=== PATIENT | female | born 1930 | race Caucasian/White ===

== ENCOUNTER 2021-11-01 18:21 | Inpatient (IN) | payer MEDICARE ==
[~2021-11-01] VITALS: Ht 147.3 cm; Wt 59.2 kg
[~2021-11-01 18:21] MED LIST: AMOXICILLIN500 MG PO; ASMANEX HFA13 G1 INH; ASPIRIN CHEWABL81 MG PO; BROVANA15 MCG/2 M INH; BUMEX1 MG PO; CRANBERRY250 MG PO; DEMADEX20 MG PO; DIFICID200 MG PO; FIBER LAXATIVE625 MG PO; K-DUR20 MEQ PO; LACTINEX1 EACH PO; LEVAQUIN500 MG PO; LOPRESSOR25 MG PO; LOVAZA1 GM PO; MACROBID100 MG PO; NYSTATIN SUSP1 ML/ML SSP; PERCOCET 5/3251 TAB PO; PREDNISONE20 MG PO; PROTONIX 40MG T40 MG PO; REGLAN5 MG PO; SALINE NASAL SP88 ML INH; SPIRIVA18 MCG INH; SYNTHROID100 MCG PO; TESSALON PERLE100 MG PO; TYLENOL500 MG PO; VENTOLIN HFA IN18 GM INH; VITAMIN B COMP1 EACH PO; VITAMIN D1000 UNI1 PO; XOPENEX (11.25 MG/3 INH; ZOFRAN4 MG PO
[2021-11-01 20:31] LABS: HCT 30.9 % (37.0-47.0); HGB 9.4 g/dl (12.5-16.0); LYMPHOCYTE 35.1 % (15-48); MCH 23.9 pg (25.0-31.0); MCHC 30.4 g/dL (32.0-36.0); MCV 78.6 fL (78.0-100.0); MONOCYTE 15.9 % (0-12); MPV 11.1 fL (6.0-9.5); NEUTROPHIL 44.8 % (41-80); NRBC 0; PLT 248 K/uL (150-400); RBC 3.93 M/uL (4.20-5.40); RDW 15.2 % (11.5-14.0); WBC 6.3 K/uL (4.0-10.5)
[2021-11-01 20:53] LABS: ALBUMIN 2.8 g/dL (3.4-5.0); ALKALINE PHOSHATASE 155 U/L (46-116); ALT 41 U/L (14-59); AST 46 U/L (15-37); BILIRUBIN - TOTAL 0.3 mg/dL (0.2-1.0); BUN 14 mg/dL (7-18); BUN/CREAT RATIO (CALC) 14.9 RATIO; CHLORIDE 99 mmol/L (98-107); CO2 (BICARBONATE) 34 mmol/L (21-32); CREATININE 0.94 mg/dL (0.51-0.95); GLOBULIN (CALCULATION) 4.3 g/dL; GLUCOSE 95 mg/dL (74-106); POTASSIUM 4.4 mmol/L (3.5-5.1); TOTAL PROTEIN 7.1 g/dL (6.4-8.2)
[2021-11-01 20:54] LABS: ACETAMINOPHEN (TYLENOL) < 2.0 ug/mL (10.0-30.0)
[2021-11-01 23:44] LABS: BILIRUBIN NEGATIVE (NEGATIVE); BLOOD NEGATIVE Ery/uL (NEGATIVE); CLARITY CLEAR (CLEAR); COLOR YELLOW (YELLOW); GLUCOSE (U) NORMAL (NORMAL); LEUKOCYTES 2+ Leu/uL (NEGATIVE); NITRITE POSITIVE (NEGATIVE); PROTEIN NEGATIVE (NEGATIVE); UROBILINOGEN 0.2 mg/dL (0.2-1.0)
[2021-11-01 23:48] LABS: AMPHETAMINES NEGATIVE (NEGATIVE); BARBITURATES NEGATIVE (NEGATIVE); ECSTASY (MDMA) NEGATIVE (NEGATIVE); MARIJUANA (THC) NEGATIVE (NEGATIVE); METHADONE NEGATIVE (NEGATIVE); OPIATES NEGATIVE (NEGATIVE); OXYCODONE NEGATIVE (NEGATIVE)
[2021-11-01 23:51] LABS: BACTERIA 4+
[2021-11-02] MEDS ORDERED: IMODIUM A-D2 M1 PO (01:15)
[2021-11-02] MEDS ORDERED: KLOR-CON M2020 MEQ PO (01:18)
[2021-11-02] MEDS ORDERED: LOVAZA1 GM PO (01:19)
[2021-11-02] MEDS ORDERED: SYNTHROID125 MCG PO (01:20)
[2021-11-02] MEDS ORDERED: BENTYL10 MG PO (01:23)
[2021-11-02] MEDS ORDERED: LASIX40 MG PO (01:24)
[2021-11-02] MEDS ORDERED: ONDANSETRON ODT8 MG PO (01:26)
[2021-11-03 07:46] LABS: BASOPHIL 0.8 % (0-2); EOSINOPHIL 3.9 % (0-7); HCT 30.5 % (37.0-47.0); HGB 9.4 g/dl (12.5-16.0); LYMPHOCYTE 40.5 % (15-48); MCH 24.5 pg (25.0-31.0); MCHC 30.8 g/dL (32.0-36.0); MCV 79.4 fL (78.0-100.0); MONOCYTE 18.3 % (0-12); MPV 11.6 fL (6.0-9.5); NEUTROPHIL 36.2 % (41-80); NRBC 0; PLT 234 K/uL (150-400); RBC 3.84 M/uL (4.20-5.40); RDW 15.5 % (11.5-14.0); RETICULOCYTE COUNT 1.4 % (1.0-2.0); WBC 7.3 K/uL (4.0-10.5)
[2021-11-03 08:20] LABS: IRON % SATURATION 7.3 %SAT (20-50)
[2021-11-03 08:48] LABS: BUN/CREAT RATIO (CALC) 15.6 RATIO; CREATININE 0.9 mg/dL (0.51-0.95); FOLIC ACID (SERUM) 6.1 ng/mL (8.6-58.9); MAGNESIUM 2.3 mg/dL (1.8-2.4)
[2021-11-04 06:18] LABS: BASOPHIL 0.3 % (0-2); EOSINOPHIL 0.2 % (0-7); HCT 30.2 % (37.0-47.0); HGB 9.2 g/dl (12.5-16.0); LYMPHOCYTE 33.8 % (15-48); MCH 24.2 pg (25.0-31.0); MCHC 30.5 g/dL (32.0-36.0); MCV 79.5 fL (78.0-100.0); MONOCYTE 3.6 % (0-12); MPV 11.1 fL (6.0-9.5); NEUTROPHIL 61.6 % (41-80); NRBC 0; PLT 252 K/uL (150-400); RDW 15.3 % (11.5-14.0); WBC 6.2 K/uL (4.0-10.5)
[2021-11-04 07:48] LABS: BUN/CREAT RATIO (CALC) 14.3 RATIO; CREATININE 0.91 mg/dL (0.51-0.95); MAGNESIUM 2.3 mg/dL (1.8-2.4); PHOSPHORUS 4.5 mg/dL (2.6-4.7); POTASSIUM 4.7 mmol/L (3.5-5.1)
--- NOTE | 2021-11-04 14:12 | NUR ---
11/04/21 Ms. Drake lives with her son and his GF. She has a rollator, 02 at 3L and portable tank. [facility] is the PCP. Therapy made recommendations for SNF. Mr. Drake, son, wishes for MS. Drake to return home with HH. [facility], his first choice, does not have therapy available in the area. Awaiting responses from [facility] and [facility].
[2021-11-05 03:31] LABS: BASOPHIL 0.6 % (0-2); EOSINOPHIL 1.8 % (0-7); HCT 28.9 % (37.0-47.0); HGB 8.8 g/dl (12.5-16.0); LYMPHOCYTE 32.4 % (15-48); MCHC 30.4 g/dL (32.0-36.0); MCV 78.7 fL (78.0-100.0); MONOCYTE 16.5 % (0-12); MPV 11.2 fL (6.0-9.5); NEUTROPHIL 48.3 % (41-80); NRBC 0; PLT 269 K/uL (150-400); RBC 3.67 M/uL (4.20-5.40); RDW 15.4 % (11.5-14.0)
[2021-11-05 03:32] LABS: WBC 11.3 K/uL (4.0-10.5)
[2021-11-05 03:40] LABS: BUN/CREAT RATIO (CALC) 21.1 RATIO; CREATININE 0.95 mg/dL (0.51-0.95); MAGNESIUM 2.4 mg/dL (1.8-2.4)
--- NOTE | 2021-11-05 13:27 | NUR ---
11/05/21 Mr. Gaitan has chosen the following SNF's: [facility], [facility], [facility], and [facility]. [facility] has denied due to COVID in the building. The other 3 facilities are reviewing.
--- NOTE | 2021-11-06 15:52 | NUR ---
[facility] HAS ACCEPTED PT. INSURANCE AUTH STILL PENDING. SPOKE WITH BEBETO ([facility]) AND SHE REQUESTED PT'S HOME BIPAP SETTINGS PER SIGNATURE POLICY. CARE COORDINATION REACHED OUT TO DME COMPANY THAT SUPPLIED BIPAP ([employer]) AND WAS TOLD PT'S SETTINGS ARE: EPAP 6, IPAP 24, AUTO BIPAP 6-24. NOTIFIED BEBETO AND SHE SAID SHE WOULD CALL CARE COORDINATION DEPARTMENT SOON AUTH WAS RECEIVED.
--- NOTE | 2021-11-07 15:18 | NUR ---
RECEIVED PHONE CALL FROM BEBETO WITH [facility]. PT. HAS BEEN ACCEPTED FOR SNF. PT. CAN GO TO [facility] TOMORROW AFTER BIPAP IS DELIVERED. HOWEVER, FAMILY HAS DECIDED TO HAVE PT. TRANSFERRED TO [facility] FOR TAVR. CURRENTLY WAITING FOR BED AT [facility]. TOLD BEBETO THIS INFORMATION AND SHE SAID SHE WOULD HOLD BED FOR PT. UNTIL TOMMORROW IN CASE FAMILY CHANGES THEIR MINDS BEFORE BED AT [facility] IS AVAILABLE.
[2021-11-07] MEDS ORDERED: FOLIC ACID1 MG PO (16:47)
[2021-11-07] MEDS ORDERED: CHILDREN'S ASPI81 MG PO (16:47)
[2021-11-07] MEDS ORDERED: PLAVIX75 MG PO (16:47)
== END 2021-11-07 18:45 | disposition hospice, home (50) | DRG 64 ==
LOC: FER 18:21 → FTCU 23:37
PROVIDERS: Internal Medicine; ADMIT Family Medicine
PROC: 5A09357 Assistance with Respiratory Ventilation, Less than 24 Consecutive Hours, Continuous Positive Airway Pressure (ICD-10-PCS; 2021-11-03)
PROC: 5A09357 Assistance with Respiratory Ventilation, Less than 24 Consecutive Hours, Continuous Positive Airway Pressure (ICD-10-PCS; 2021-11-04)
PROC: B24BZZZ Ultrasonography of Heart with Aorta (ICD-10-PCS; principal; 2021-11-05)
PROC: 5A09357 Assistance with Respiratory Ventilation, Less than 24 Consecutive Hours, Continuous Positive Airway Pressure (ICD-10-PCS; 2021-11-05)
DX: I63.9 Cerebral infarction, unspecified (principal); J96.21 Acute and chronic respiratory failure with hypoxia; J96.22 Acute and chronic respiratory failure with hypercapnia; I50.32 Chronic diastolic (congestive) heart failure; N30.00 Acute cystitis without hematuria; I13.0 Hypertensive heart and chronic kidney disease with heart failure and stage 1 through stage 4 chronic kidney disease, or unspecified chronic kidney disease; Z66 Do not resuscitate; I35.0 Nonrheumatic aortic (valve) stenosis; B96.20 Unspecified Escherichia coli [E. coli] as the cause of diseases classified elsewhere; N18.30 Chronic kidney disease, stage 3 unspecified; D63.1 Anemia in chronic kidney disease; B96.1 Klebsiella pneumoniae [K. pneumoniae] as the cause of diseases classified elsewhere; I27.20 Pulmonary hypertension, unspecified; J84.10 Pulmonary fibrosis, unspecified; J44.9 Chronic obstructive pulmonary disease, unspecified; E03.9 Hypothyroidism, unspecified; K21.9 Gastro-esophageal reflux disease without esophagitis; F32.A Depression, unspecified; F41.9 Anxiety disorder, unspecified; R29.702 NIHSS score 2; Z99.81 Dependence on supplemental oxygen; Z88.5 Allergy status to narcotic agent; Z88.1 Allergy status to other antibiotic agents; Z88.8 Allergy status to other drugs, medicaments and biological substances; Z98.890 Other specified postprocedural states; Z28.310 Unvaccinated for COVID-19
CPT/HCPCS: 36415; 36600; 70450; 71045; 71250; 74230; 80048; 80053; 80305; 81001; 82140; 82607; 82746; 82803; 83540; 83550; 83605; 83735; 83880; 84100; 84145; 84484; 85025; 87076; 87088; 87186; 92507; 92523; 92611; 93005; 93880; 94010; 94640; 94664; 94667; 94668; 94760; 94762; 97110; 97162; 97167; 97530; 97530-GP; 97535; G0480; J0696; J1335; J1650; J2916